=== PATIENT | female | born 1965 | race Caucasian/White ===

== ENCOUNTER 2016-10-24 17:55 | Emergency (ER) | payer BC ==
--- NOTE | ~2016-10-24 | CT2 ---
[facility] A Service of [facility] & [facility] RADIOLOGY TEXT RESULTS PATIENT: CHATO VEGA LOCATION: CFTX : 63 UNIT #: [id number] AGE: [address]: Wesley Blake MD SEX: F ORDER DR: [id number] [facility] [address] [place], [place] [address] [id number] MR#: [id number] #: [id number] NAME: CHATO VEGA : 1965 SEX: F STUDY DATE/TIME: 10/24/2016 19:44 UNIT: CFTX ROOM: STUDY DESCRIPTION: CT Abd and Pelv W Cont Attending Physician: Wesley Blake M.D. Referring Physician: Ba Ashraf D.O. Ordering Physician: Jaydon Aburto M.D. Primary Care Physician: Ba Ashraf D.O. MEDICAL IMAGING REPORT This report is preliminary unless electronic signature is present EXAM CT abdomen and pelvis 10/24/2016 HISTORY Epigastric pain 1 hour after taking medication. History of gastritis, hysterectomy, cystocele repair, GB, tubal ligation. TECHNIQUE/COMPARISON CT abdomen and pelvis performed with intravenous administration of 100 mL Isovue-370. Enteric contrast also administered. No prior studies for comparison. This CT exam was performed with one or more of the following radiation dose reduction techniques: automatic exposure control, adjustment of mA and/or kV according to patient size, and iterative reconstruction. FINDINGS Dependent atelectasis at the lung bases. Inferior heart and pericardium unremarkable. Liver unremarkable. Status post cholecystectomy. No ductal obstruction. Spleen, pancreas, adrenal glands unremarkable. Approximately 2 mm nonobstructing calculus lower pole right kidney. 4-5 mm indeterminate hypodensity posterior mid-right kidney. 1 cm indeterminate hypodensity lower pole right kidney. These are probably complicated cysts. Assessment with any prior imaging recommended if available. In the absence of prior characterization, renal ultrasound recommended. The left kidney is unremarkable. The ureters are remarkable. CT PELVIS: No inguinal adenopathy. The urinary bladder is unremarkable. Small amount of free fluid in the pelvis. This may be physiologic in nature. Bilateral adnexal cysts. On the left, there is a dominant cystic structure measuring 6.1 cm x 5.5 cm x 4.9 cm. On the right, there is a cystic structure measuring 5.4 cm x 3.8 cm x 3.7 cm. While it is likely that these are rather large physiologic cysts, the possibility of malignant cystic adnexal neoplasm is not excluded and given their size and STS. [facility] A Service of [facility] RADIOLOGY TEXT RESULTS PATIENT: CHATO VEGA LOCATION: CFTX : 63 UNIT #: [id number] AGE: [address]: Wesley Blake MD SEX: F ORDER DR: the patient's age, full assessment with pelvic ultrasound and/or MRI and gynecologic/surgical consultation strongly recommended. Trace amount of free fluid in the pelvis which may be physiologic in nature and/or related to a cyst leakage. No pelvic or retroperitoneal adenopathy. The distal esophagus, stomach, small bowel are unremarkable. Patient appears to retain normal appendix. Colon shows a few right-sided diverticuli without evidence of diverticulitis. No acute colonic abnormality. The vascular structures are unremarkable. The bony structures are remarkable. IMPRESSION 1. Large cystic structures in the bilateral adnexal regions, on left measuring up to 6.1 cm in maximum diameter and on the right measuring up to 5.4 cm in maximum diameter. Patient is status post hysterectomy. These bilateral cystic structures are probably benign though abnormally large ovarian/adnexal cysts. Given their size and the patient's age, malignant cystic adnexal neoplasm is in the differential diagnosis. Given their size, further characterization with ultrasound and/or MRI is recommended. Gynecologic/surgical consultation is strongly recommended as well. 2. There is a trace amount of free fluid the pelvis. Not a drainable fluid collection. Probably physiologic in nature and/or related to cyst leakage. 3. They are 2 small hypodense but indeterminate foci in the right kidney. 1 in the posterior mid kidney and 1 in the lower pole. In the absence of prior studies characterizing these findings, ultrasound would be recommended. If renal ultrasound is inconclusive, consider multiphase contrast-enhanced CT or MRI. I favor that these represent complicated cysts. 4. The alimentary canal including appendix shows no acute abnormality. Minimal right colon diverticulosis, uncomplicated. 5. Nonobstructing 2 mm lower pole right renal calculus. 6. See remainder of incidental findings in body of report above. Dictated by... Iban Lucero M.D. THIS IS AN ELECTRONICALLY VERIFIED REPORT Iban Lucero M.D. at 10/25/2016 8:22 PM Radha TD: 10/25/2016 14:10 JOB #: [id number] MEDICAL IMAGING REPORT COPY
[2016-10-24 16:43] LABS: URINE SOURCE CLEAN CATCH
[2016-10-24 16:48] LABS: URINE APPEARANCE CLEAR; URINE BILIRUBIN NEG (NEG); URINE BLOOD 2+ (NEG); URINE COLOR DK YELLOW; URINE GLUCOSE NEG (NEG); URINE KETONE 1+ (NEG); URINE LEUKOCYTE ESTERASE TRACE (NEG); URINE NITRATE NEG (NEG); URINE PROTEIN 1+ (NEG); URINE SPECIFIC GRAVITY 1.024 (1.003-1.035)
[2016-10-24 16:51] LABS: URINE BACTERIA AUWI NEG (NEGATIVE); URINE SQUAMOUS EPITHELIAL CELL OCC /[HPF]
[2016-10-24 16:52] LABS: CULTURE INDICATED? NO
[2016-10-24 17:53] LABS: BASOPHIL% 0.3 % (0-2.5); EOSINOPHIL% 0.1 % (0.0-7.0); HEMATOCRIT 41.2 % (35.0-45.0); HEMOGLOBIN 13.6 gm/dL (12.0-16.0); LYMPHOCYTE# 1.5 X10e3 (1.0-3.5); LYMPHOCYTE% 20.9 % (17.0-45.0); MEAN CORPUSCULAR HEMOGLOBIN 27.1 PG (28-34); MEAN PLATELET VOLUME 8.2 FL (6.5-11.5); MONOCYTE# 0.7 X10e3 (0-1.0); MONOCYTE% 9.1 % (3.0-12.0); NEUTROPHIL% 69.6 % (40-75); PLATELET COUNT 247 X10e3 (140-420); RED BLOOD COUNT 5.02 X10e (3.90-5.30); RED CELL DISTRIBUTION WIDTH 13.8 % (11.0-15.5); WHITE BLOOD COUNT 7.2 X10e3 (4.0-10.5)
[~2016-10-24 17:55] MED LIST: CERTAGEN PO; FIBERCON625 MG PO; LECITHIN; LORTAB 10/500 T1 TAB PO; PANTOPRAZOLE SO40 MG PO; PRILOSEC40 MG; VIT E PO; ZOCOR PO
[2016-10-24 17:59] LABS: DIFF IND NO
[2016-10-24 18:20] LABS: ALBUMIN SERUM 4.3 g/dL (3.5-5.0); ALKALINE PHOSPHATASE 165 U/L (32-92); ALT (SGPT) 216 U/L (10-40); AMYLASE 139 U/L (0-46); AST (SGOT) 354 U/L (10-42); BILIRUBIN, DIRECT 0.3 mg/dL (0.0-0.2); BILIRUBIN,TOTAL 1.3 mg/dL (0.2-2.0); BLOOD UREA NITROGEN 17 mg/dL (9-23); CALCIUM SERUM 9.8 mg/dL (8.4-10.2); CARBON DIOXIDE 26 mmol/L (22-31); CHLORIDE 101 mmol/L (100-111); GLOM FILT RATE Estimated ABOVE60 mL/min (>60); GLUCOSE FASTING 97 mg/dL (70-110); LIPASE 101 U/L (22-51); POTASSIUM 3.5 mmol/L (3.5-5.1); PROTEIN TOTAL SERUM 8.7 g/dL (6.0-8.3); SODIUM 138 mmol/L (135-145)
== END 2016-10-24 22:25 | disposition home or self-care (01) ==
LOC: CFTX 17:55
PROVIDERS: Emergency Medicine
DX: N83.8 Other noninflammatory disorders of ovary, fallopian tube and broad ligament (principal); R94.5 Abnormal results of liver function studies; Z90.710 Acquired absence of both cervix and uterus; Z90.49 Acquired absence of other specified parts of digestive tract; Z88.2 Allergy status to sulfonamides
CPT/HCPCS: 36415; 74177; 80048; 80076; 81003; 82150; 83690; 85025; 99284; Q9967